=== PATIENT | male | born 1940 | race Caucasian/White ===

== ENCOUNTER 2017-01-03 16:56 | Emergency (ER) | payer OTHER ==
--- NOTE | 2017-01-03 17:06 | EDPHY ---
H & P Stated Complaint: Fell, hit head - neck and abdominal pain Time Seen by Provider: 01/03/17 17:10 HPI/ROS: CC: fell-hitting head, neck pain, elbow pain, abdominal pain. HPI: This is a medically stable though complicated 76-year-old male who took a tumble at home. He was trying to negotiate a set of stairs leading up to the patio, something he has done house at times. However he was distracted by the spouse in the window and thus he missed a step falling forward landing on the step with his abdomen and then bouncing off the stairs onto the ground on his elbows as well as knees and in the process striking his head on a plant based that was on the stairs with bracket. Thus he sustained a bruise and abrasion to the head, complains of neck pain and bilateral knee and bilateral elbow discomfort as well as pain across the abdomen. Nonetheless he was able to get up on his own power and come in by car. He remembers the event. There is no loss of consciousness. He has full recall for the event. Of note is that he was feeling fine prior to the fall without any chest pain, shortness of breath, headache, or vomiting or diarrhea. No passing blood in stool. He has no fluid coming from ear or nose. He has no double vision. There is no nausea though he does feel not only headache but diffusely is comfortable due to the all the sites that her injured, as below. He and I talked and he would like to have some Tylenol for the discomfort. His complains of is the left side of the neck extending from the left occiput to the lower C-spine laterally over the lateral masses. He denies any numbness or tingling paresthesias to the left upper extremity or either extremities upper or lower. No focal motor weakness. There is some pain to the areas of both olecranon however there are some small abrasions present left greater than right. See PE. He has full range of motion. Chest: He has no chest pain or difficulty breathing or shortness of breath or pain with breathing. Abdomen: He complains of striking the mid abdomen on the spread of the stairs. Complains of pain across the abdomen as he runs his hand across the abrasion/ ecchymosis as developing across the mid abdomen. He also has pain to the left mid antunez where he has a bruise and is pain across the knees however he has full range of motion. ROS: Constitutional - feeling well before the fall Head see above Eyes - no diplopia, blurred vision. ENT - no earache, no fluid from ear. No fluid from nose. No facial injury Neck: See above Thorax: did not injury to chest or ribs or spine, no shortness of breath Abdominal - see above. Denies back injury. No nausea. Musculoskeletal - see above Integument - a large abrasion to the left frontal area however no suturable lacerations noted Neurological - mild headache. Numbness, tingling, or paresthesias. No focal motor weakness. No amnesia or LOC. No fluid from ear or nose 10 point ROS otherwise negative Source: Patient Exam Limitations: No limitations - Personal History Current Tetanus Diphtheria and Acellular Pertussis (TDAP): No - Medical/Surgical History Hx Asthma: No Hx Chronic Respiratory Disease: No Hx Diabetes: No Hx Cardiac Disease: Yes Hx Renal Disease: Yes Hx Cirrhosis: No Hx Alcoholism: No Hx HIV/AIDS: No Hx Splenectomy or Spleen Trauma: No Other PMH: Cardiac disease, 3 stents. On Plavix. HTN, depression, high chol, BPH. - Family History Significant Family History: No pertinent family hx - Social History Smoking Status: Never smoked Alcohol Use: None Drug Use: None - Physical Exam Exam: Constitutional: Well-nourished, well-developed, no acute distress. No odor of alcohol Neck: There is no step-off and there is no midline tenderness however there is tenderness over the lateral masses along the entire range of the cervical spine. Range of motion not tested until cleared by Radiology Head: Large frontal abrasion and ecchymosis with soft tissue swelling present overlying the left side of the forehead without any suturable lacerations. Eyes: Pupils equal and reactive. ENT: Ears are without hemotympanum. Mouth exam, atraumatic. Chest: Ribs are nontender. No signs of splinting respirations. Back: Nontender thoracic and lumbar sacral spine Abdomen: Mild tenderness right upper quadrant. There is an abrasion present over the mid abdomen both left and right side with perhaps some ecchymotic formation. No organomegaly. Rotund and obese. Musculoskeletal: Moves all extremities without difficulty. No joint swelling. No ecchymosis. No deformities. Skin: No observed abrasions or lacerations. Skin is warm and dry. Normal motor and sensation Neuro: Alert and oriented with a GCS of 15. No acute distress. No headache. Psych: Normal mood and affect. Constitutional: Initial Vital Signs Temperature (C) 36.7 C 01/03/17 17:06 Heart Rate 71 01/03/17 17:06 Respiratory Rate 16 01/03/17 17:06 Blood Pressure 150/73 H 01/03/17 17:06 O2 Sat (%) 94 01/03/17 17:06 O2 Delivery Mode Room Air Allergies/Adverse Reactions: Sulfa (Sulfonamide Antibiotics) Allergy (Verified 01/03/17 17:24) Home Medications: Medication Instructions Recorded Acetaminophen [Acetaminophen 8 1,300 mg PO Q8 #30 tablet.sa 01/03/17 Hour] Amlodipine Besylate 01/03/17 Atorvastatin Calcium 01/03/17 Benicar 01/03/17 Metoprolol Succinate 01/03/17 Plavix 01/03/17 Tamsulosin HCl 01/03/17 buPROPion XL 01/03/17 Medical Decision Making - Diagnostics Imaging Results: Imaging Impressions Cervical Spine CT 01/03/17 17:19 Impression: Head CT: 1. Large left frontal scalp hematoma without associated fracture. 2. No acute intracranial abnormality. 3. Age-appropriate volume loss. Cervical Spine: 1. No acute abnormalities. 2. Cannot exclude ligament, spinal cord and/or vascular abnormalities on this exam. If there is persistent pain or neurologic deficit, consider MRI and/or flexion and extension radiographs of the cervical spine. 3. Multilevel degenerative changes, as above. Dr. Hays discussed these findings by telephone with Rashawn Lakhani MD on at 19:10. Head CT 01/03/17 17:19 Impression: Head CT: 1. Large left frontal scalp hematoma without associated fracture. 2. No acute intracranial abnormality. 3. Age-appropriate volume loss. Cervical Spine: 1. No acute abnormalities. 2. Cannot exclude ligament, spinal cord and/or vascular abnormalities on this exam. If there is persistent pain or neurologic deficit, consider MRI and/or flexion and extension radiographs of the cervical spine. 3. Multilevel degenerative changes, as above. Dr. Hays discussed these findings by telephone with Rashawn Lakhani MD on at 19:10. Abdomen CT 01/03/17 17:20 Impression: 1. No acute abnormalities. 2. Hypodense mass in the head of the pancreas is indeterminate. Recommend nonemergent MRI pancreatic mass protocol to further evaluate. 3. Cholelithiasis. Dr. Hays discussed these findings by telephone with Rashawn Lakhani MD on at 19:10. Imaging: Discussed imaging studies w/ housecalls nurse Radiologist ED Course/Re-evaluation: After initial evaluation patient given a L saline with the anticipation of a CT scan with contrast given the abdominal wall findings. Preliminary interpretation of the head and neck films by me was negative. Formal review and discussion with the radiologist conducted approximately hour later which confirmed the same. At approximately 6:20 a.m. he returned from CT scan. Evidently the hub had disconnected with the 1st injection of contrast and thus needed to be repeated. Nonetheless I find him awake alert and oriented any recognizes me from earlier , his clinical exam remains nonfocal. CT scan of the abdomen pelvis. Interpreted by radiologist. Negative for acute injury. Suspicion for pancreatic mass. Recommended MRI protocol. These facts were discussed with the patient at length. Case discussed with trauma surgeon on-call. He deferred to Neurosurgery with respect to monitor the patient on Plavix going forward Discussed with the neurosurgeon on-call who recommended outpatient follow-up with a reliable family member in the interim, which is indeed the case. Discharge plan and protocol going forward was discussed with patient and spouse Differential Diagnosis: Differential Includes but is not limited to: Concussion, head injury, subdural hematoma, epidural hematoma, intraparenchymal hemorrhage, subarachnoid hemorrhage. Cervical spine: Fracture spine, dislocation spine, muscle strain Abdominal/pelvis: Splenic injury or hematoma or laceration, liver laceration or hematoma. Contusion of duodenum, renal contusion, hollow viscus injury, pelvic fracture, intra-abdominal bleeding. Extremities: Fracture, Sprain, Strain, Dislocation, Nerve injury, Contusion - Data Points Laboratory Results: Laboratory Results 01/03/17 17:40 01/03/17 17:40 01/03/17 01/03/17 01/03/17 19:18 17:40 17:40 WBC 6.81 10^3/uL 10^3/uL (3.80-9.50) RBC 4.50 10^6/uL 10^6/uL (4.40-6.38) Hgb 14.0 g/dL g/dL (13.7-17.5) POC Hgb Hct 40.4 % % (40.0-51.0) POC Hct MCV 89.8 fL fL (81.5-99.8) MCH 31.1 pg pg (27.9-34.1) MCHC 34.7 g/dL g/dL (32.4-36.7) RDW 13.3 % % (11.5-15.2) Plt Count 180 10^3/uL 10^3/uL (150-400) MPV 9.8 fL fL (8.7-11.7) Neut % (Auto) 75.7 % H % (39.3-74.2) Lymph % (Auto) 14.4 % L % (15.0-45.0) Ector % (Auto) 6.6 % % (4.5-13.0) Eos % (Auto) 1.9 % % (0.6-7.6) Baso % (Auto) 1.0 % % (0.3-1.7) Nucleat RBC Rel Count 0.0 % % (0.0-0.2) Absolute Neuts (auto) 5.15 10^3/uL 10^3/uL (1.70-6.50) Absolute Lymphs (auto) 0.98 10^3/uL L 10^3/uL (1.00-3.00) Absolute Monos (auto) 0.45 10^3/uL 10^3/uL (0.30-0.80) Absolute Eos (auto) 0.13 10^3/uL 10^3/uL (0.03-0.40) Absolute Basos (auto) 0.07 10^3/uL 10^3/uL (0.02-0.10) Absolute Nucleated RBC 0.00 10^3/uL 10^3/uL (0-0.01) Immature Gran % 0.4 % % (0.0-1.1) Immature Gran # 0.03 10^3/uL 10^3/uL (0.00-0.10) POC Sodium Sodium 141 mEq/L mEq/L (134-144) POC Potassium Potassium 4.3 mEq/L mEq/L (3.5-5.2) POC Chloride Chloride 105 mEq/L mEq/L (97-110) Carbon Dioxide 26 mEq/l mEq/l (22-31) Anion Gap 10 mEq/L mEq/L (8-16) POC BUN BUN 20 mg/dL mg/dL (7-23) Creatinine 0.9 mg/dL mg/dL (0.7-1.3) POC Creatinine Estimated GFR > 60 Glucose 102 mg/dL H mg/dL (70-100) POC Glucose Calcium 8.7 mg/dL mg/dL (8.5-10.4) Total Bilirubin 1.5 mg/dL H mg/dL (0.1-1.4) Conjugated Bilirubin 0.4 mg/dL mg/dL (0.0-0.5) Unconjugated Bilirubin 1.1 mg/dL mg/dL (0.0-1.1) AST 21 IU/L IU/L (17-59) ALT 35 IU/L IU/L (21-72) Alkaline Phosphatase 79 IU/L IU/L (38-126) NT-Pro-B Natriuret Pep 373 pg/mL pg/mL (0-450) Total Protein 5.8 g/dL L g/dL (6.3-8.2) Albumin 3.5 g/dL g/dL (3.5-5.0) Urine Color YELLOW Urine Appearance CLEAR Urine pH 6.0 (5.0-7.5) Ur Specific [place] 1.020 (1.002-1.030) Urine Protein NEGATIVE (NEGATIVE) Urine Ketones NEGATIVE (NEGATIVE) Urine Blood NEGATIVE (NEGATIVE) Urine Nitrate NEGATIVE (NEGATIVE) Urine Bilirubin NEGATIVE (NEGATIVE) Urine Urobilinogen 0.2 EU EU (0.2-1.0) Ur Leukocyte Esterase NEGATIVE (NEGATIVE) Urine Glucose NEGATIVE (NEGATIVE) 01/03/17 17:38 WBC RBC Hgb POC Hgb 13.9 gm/dL gm/dL (13.7-17.5) Hct POC Hct 41 % % (40-51) MCV MCH MCHC RDW Plt Count MPV Neut % (Auto) Lymph % (Auto) Ector % (Auto) Eos % (Auto) Baso % (Auto) Nucleat RBC Rel Count Absolute Neuts (auto) Absolute Lymphs (auto) Absolute Monos (auto) Absolute Eos (auto) Absolute Basos (auto) Absolute Nucleated RBC Immature Gran % Immature Gran # POC Sodium 142 mEq/L mEq/L (134-144) Sodium POC Potassium 4.0 mEq/L mEq/L (3.3-5.0) Potassium POC Chloride 104 mEq/L mEq/L (97-110) Chloride Carbon Dioxide Anion Gap POC BUN 21 mg/dL mg/dL (7-23) BUN Creatinine POC Creatinine 1.0 mg/dL mg/dL (0.7-1.3) Estimated GFR Glucose POC Glucose 109 mg/dL H mg/dL (70-100) Calcium Total Bilirubin Conjugated Bilirubin Unconjugated Bilirubin AST ALT Alkaline Phosphatase NT-Pro-B Natriuret Pep Total Protein Albumin Urine Color Urine Appearance Urine pH Ur Specific [place] Urine Protein Urine Ketones Urine Blood Urine Nitrate Urine Bilirubin Urine Urobilinogen Ur Leukocyte Esterase Urine Glucose Medications Given: Discontinued Medications Acetaminophen (Tylenol) 650 mg PO EDNOW ONE Stop: 01/03/17 17:25 Last Admin: 01/03/17 17:33 Dose: 650 mg Diphtheria/Tetanus/Acell Pertussis (Boostrix) 0.5 ml IM .ONCE ONE Stop: 01/03/17 17:45 Last Admin: 01/03/17 18:30 Dose: 0.5 ml Sodium Chloride (Ns) 1,000 mls @ 0 mls/hr IV ONCE ONE; As Directed PRN Reason: Protocol Stop: 01/03/17 17:20 Last Admin: 01/03/17 18:26 Dose: 1,000 mls Point of Care Test Results: 01/03/17 17:38 POC Sodium 142 POC Potassium 4.0 POC Chloride 104 POC BUN 21 POC Creatinine 1.0 POC Glucose 109 H Departure - Departure Disposition: Home, Routine, Self-Care Clinical Impression: Pancreatic mass Head injury due to trauma Qualifiers: Encounter type: initial encounter Qualified Code(s): S09.90XA - Unspecified injury of head, initial encounter Forehead contusion Qualifiers: Encounter type: initial encounter Qualified Code(s): S00.83XA - Contusion of other part of head, initial encounter Elbow contusion Qualifiers: Encounter type: initial encounter Laterality: left Qualified Code(s): S50.02XA - Contusion of left elbow, initial encounter Contusion of left leg Qualifiers: Encounter type: initial encounter Qualified Code(s): S80.12XA - Contusion of left lower leg, initial encounter Abdominal wall contusion Qualifiers: Encounter type: initial encounter Qualified Code(s): S30.1XXA - Contusion of abdominal wall, initial encounter Condition: Good Instructions: Head Injury (ED), Blunt Abdominal Injury (ED), Abrasion (ED) Additional Instructions: Tylenol for her pain. Do not use Advil, Aleve, ibuprofen etc. You can use regular Tylenol however I wrote a prescription for the long-acting Tylenol: Tylenol extended-release. Do not use both however. For your follow-up: Neurosurgery for the head injury General surgery for the abdominal injuries Your family doctor for the possible pancreatic mass Referrals: MANUELA CONTEH [Primary Care Provider] - 2-3 days without fail (On the CT scan there is a mass at the pancreas that needs further study. The radiologist is recommending MRI of the pancreas. This is to be arranged by her family doctor.) Guille Valderrama MD [Medical Doctor] - As per Instructions Tommy Sanchez MD [Medical Doctor] - As per Instructions Prescriptions: Acetaminophen [Acetaminophen 8 Hour] 1,300 mg PO Q8 #30 tablet.sa
[2017-01-03] MEDS ORDERED: NS 1,000 ML IV ONE (17:19)
[2017-01-03] MEDS ORDERED: ACETAMINOPHEN 325 MG TAB PO ONE (17:24)
[2017-01-03] MEDS ORDERED: IOPAMIDOL (ISOVUE-300) 100 ML BTL ONE ×2 (17:43→18:07)
[2017-01-03] MEDS ORDERED: TDAP ADULT 0.5 ML INJ (BOOSTRIX) IM ONE (17:44)
[2017-01-03 17:48] LABS: % IMMATURE GRANULYOCYTES 0.4 % (0.0-1.1); ABSOLUTE IMMATURE GRANULOCYTES 0.03 10^3/uL (0.00-0.10); ADD DIFF? NO; ADD MORPH? NO; ADD SCAN? NO; ATYPICAL LYMPHOCYTE FLAG 0 (0-99); FRAGMENT RBC FLAG 0 (0-99); HEMATOCRIT 40.4 % (40.0-51.0); LEFT SHIFT FLG 0 (0-99); LIPEMIA HEMOLYSIS FLAG 90 (0-99); MEAN CELL HEMOGLOBIN 31.1 pg (27.9-34.1); MEAN CELL HEMOGLOBIN CONCENTR. 34.7 g/dL (32.4-36.7); MEAN CELL VOLUME 89.8 fL (81.5-99.8); MEAN PLATELET VOLUME 9.8 fL (8.7-11.7); PLATELET CLUMPS FLAG 0 (0-99); PLATELET COUNT 180 10^3/uL (150-400); RED CELL DISTRIBUTION WIDTH 13.3 % (11.5-15.2)
[2017-01-03 18:01] LABS: ALANINE AMINOTRANSFERASE 35 IU/L (21-72); ALBUMIN 3.5 g/dL (3.5-5.0); ALKALINE PHOSPHATASE 79 IU/L (38-126); ANION GAP 10 mEq/L (8-16); ASPARTATE AMINOTRANSFERASE 21 IU/L (17-59); BILIRUBIN,TOTAL 1.5 mg/dL (0.1-1.4); BILIRUBIN-CONJUGATED 0.4 mg/dL (0.0-0.5); BILIRUBIN-UNCONJUGATED 1.1 mg/dL (0.0-1.1); CALCIUM 8.7 mg/dL (8.5-10.4); CARBON DIOXIDE 26 mEq/l (22-31); CHLORIDE 105 mEq/L (97-110); CREATININE 0.9 mg/dL (0.7-1.3); GLOMERULAR FILTRATION RATE > 60; GLUCOSE 102 mg/dL (70-100); POTASSIUM 4.3 mEq/L (3.5-5.2); SODIUM 141 mEq/L (134-144); TOTAL PROTEIN 5.8 g/dL (6.3-8.2)
[2017-01-03 18:36] VITALS: RESP 18
[2017-01-03 19:44] LABS: COLOR YELLOW; LEUKOCYTE ESTERASE,URINE NEGATIVE (NEGATIVE); NITRITE,URINE NEGATIVE (NEGATIVE)
[2017-01-03 20:09] VITALS: BP 125/73; PULSE 65; TEMP 97.9; O2SAT 94
== END 2017-01-03 20:05 | disposition home or self-care (01) ==
LOC: CED 16:56
DX: S30.1XXA Contusion of abdominal wall, initial encounter (principal); S80.12XA Contusion of left lower leg, initial encounter; S50.02XA Contusion of left elbow, initial encounter; S00.83XA Contusion of other part of head, initial encounter; K86.89 Other specified diseases of pancreas; I10 Essential (primary) hypertension; Z95.5 Presence of coronary angioplasty implant and graft; Z23 Encounter for immunization; W01.190A Fall on same level from slipping, tripping and stumbling with subsequent striking against furniture, initial encounter; Y92.009 Unspecified place in unspecified non-institutional (private) residence as the place of occurrence of the external cause; Y99.8 Other external cause status; Y93.89 Activity, other specified
CPT/HCPCS: 70450-PO; 72125-PO; 74177-PO; 80048-PO; 80076-PO; 81003-PO; 82947-QW; 83880-PO; 85025-PO; Q9967